=== PATIENT | male | born 1985 | race Caucasian/White ===

== ENCOUNTER 2017-01-09 18:57 | Emergency (ER) | payer OTHER ==
[2017-01-09 19:15] VITALS: BP 113/72; PULSE 77; RESP 16; TEMP 98.6; O2SAT 94
--- NOTE | 2017-01-09 20:04 | UCPHY ---
H & P Time Seen by Provider: 01/09/17 19:44 Patient Type: Established HPI/ROS: CHIEF COMPLAINT: Swelling on the left side of the face HISTORY OF PRESENT ILLNESS: 32-year-old male reports this morning when he woke and swelling on the left side of his face, over the angle of the jaw. Over the day the swelling seems to have diminished but the patient continues to have an area of a swollen lymph node on the left side of the neck. No other swollen lymph nodes are noted. No fever. No throat pain. No dental work. No rash. No complaints on the right side of the face. No fever, chills, chest pain, shortness of breath, palpitations, vomiting, diarrhea, urinary complaints, headache, lightheadedness. REVIEW OF SYSTEMS: Aside from elements discussed in the HPI, a comprehensive 10-point review of systems was reviewed and is negative. PAST MEDICAL HISTORY: Sinus infections. Received his immunizations as a child. SOCIAL HISTORY: Nonsmoker. VITAL SIGNS: see nurse's notes. GENERAL: Well-developed, well-nourished, in no acute distress. HEENT: Atraumatic. Slight asymmetry of the face is noted. Pupils equal round reactive to light, extraocular movements intact, no conjunctival injection. Tympanic members are clear bilaterally. No swelling noted over the left cheek. Moist mucous membranes. Small stone versus small amount of discharge present at the stensons duct intraorally. Neck: supple, FROM. Tender submandibular adenopathy on the left. LUNGS: Clear to auscultation bilaterally, no wheezes, rhonchi or rales. CARDIAC: Regular rate and rhythm, no rubs, murmurs or gallops. ABDOMEN: Soft, nontender, nondistended, bowel sounds normal. NEURO: Alert and oriented, grossly nonfocal. SKIN: Warm and dry, no rash. Smoking Status: Never smoked Constitutional: Initial Vital Signs Temperature (C) 37 C 01/09/17 19:11 Heart Rate 77 01/09/17 19:11 Respiratory Rate 16 01/09/17 19:11 Blood Pressure 113/72 01/09/17 19:11 O2 Sat (%) 94 01/09/17 19:11 O2 Delivery Mode Room Air Allergies/Adverse Reactions: No Known Allergies Allergy (Verified 01/09/17 19:15) Home Medications: Medication Instructions Recorded Claritin 04/26/14 Amoxicillin 500 mg PO TID 7 Days 01/09/17 Nasal [place] 01/09/17 Medical Decision Making ED Course/Re-evaluation: Examination demonstrates small punctate probable stone at Stensen's duct. Patient states that the symptoms of the cheek swelling has improved throughout the day. He does continue to have mild submandibular tenderness over the submandibular lymph node. Patient was given information regarding salivary stones. He also was given a prescription for amoxicillin to use if needed for ongoing discomfort in the submandibular lymph node. However, this may also represent a reactive inflammation. Patient was encouraged follow up with ENT. Please see the discharge instructions. Differential Diagnosis: Differential diagnoses for the patient's symptom complex was considered including but not limited to parotidis, mononucleosis, salivary duct stones, reactive lymphadenopathy, adenitis, submandibular gland stone. Departure - Departure Disposition: Home, Routine, Self-Care Clinical Impression: Adenitis, acute, Salivary duct stone Condition: Good Instructions: Sialoadenitis (ED), Adenitis (ED) Additional Instructions: I suspect that your symptoms may have been related to a stone in the salivary gland. If you have recurrent swelling of the face, try sucking on a lemon drop to increase the flow of saliva. If your lymph node in the neck continues to be swollen and tender, please start taking the amoxicillin. You may take ibuprofen as needed for pain. If you develop a fever, recurrent swelling in that is not improved with the above measures, swollen lymph nodes in other parts of the body, severe sore throat, or other concerns, please return to Urgent Care or follow up with your primary care physician. Referrals: NONE *PRIMARY CARE P,. [Primary Care Provider] - As per Instructions Ashly Joyce MD [Medical Doctor] - As per Instructions (Dr. Joyce is Ear Nose and Throat doctor. Please follow up as needed.) Prescriptions: Amoxicillin 500 mg PO TID 7 Days - PQRS PQRS Measurement: Not applicable
== END 2017-01-10 19:46 | disposition home or self-care (01) ==
LOC: CED 18:57
DX: R22.0 Localized swelling, mass and lump, head (principal); R22.1 Localized swelling, mass and lump, neck
CPT/HCPCS: 99214-PO; G0463-PO

== ENCOUNTER 2017-04-06 17:19 | Emergency (ER) | payer OTHER ==
[2017-04-06 17:24] VITALS: RESP 16
[2017-04-06] MEDS ORDERED: NS 1,000 ML IV ONE (17:54)
--- NOTE | 2017-04-06 18:00 | EDPHY ---
H & P Time Seen by Provider: 04/06/17 17:30 HPI/ROS: CHIEF COMPLAINT: Abdominal pain HISTORY OF PRESENT ILLNESS: 32-year-old male presents to the emergency department by private vehicle with abdominal pain. The pain began on Wednesday, 6 days ago and has been intermittent. He has had 4-5 episodes of watery diarrhea since then. No vomiting. No fevers or chills. No melena or blood in his stool. No recent travel. No known ill contacts. Denies chest pain or difficulty breathing. Denies any reported trauma. Denies urinary symptoms. Denies URI symptoms. REVIEW OF SYSTEMS: Constitutional: No fever, no chills. Eyes: No double or blurry vision. ENT: No sore throat. Respiratory: No cough, no shortness of breath. Cardiac: No chest pain. Gastrointestinal: abdominal pain. Diarrhea. No vomiting. Genitourinary: No dysuria. Musculoskeletal: No neck or back pain. Skin: No rashes. Neurological: No headache. Past Medical/Surgical History: Appendectomy Social History: , occupational therapy teacher at [employer] Smoking Status: Never smoked Physical Exam: General Appearance: Alert, no distress. 124/72, 98% on room air, afebrile. Eyes: Pupils equal and round. Extraocular motions are all intact. ENT: Mouth: Mucous membranes moist. Respiratory: No wheezing, rhonchi, or rales, lungs are clear to auscultation. Cardiovascular: Regular rate and rhythm. Gastrointestinal: Abdomen is soft. He has tenderness with palpation in the epigastric area as well as in the right upper quadrant. There is no rebound, guarding or masses noted. No CVA tenderness bilaterally. Neurological: Alert and oriented x 3, cranial nerves II through XII grossly intact Skin: Warm and dry, no rashes. Musculoskeletal: Nontender to palpate along the cervical, thoracic or lumbar spine. Neck is supple. Extremities: Full range of motion and no peripheral edema. Psychiatric: Patient is oriented X 3, there is no agitation. Constitutional: Initial Vital Signs Temperature (C) 36.2 C 04/06/17 17:23 Heart Rate 75 04/06/17 17:23 Respiratory Rate 16 04/06/17 17:23 Blood Pressure 124/72 H 04/06/17 17:23 O2 Sat (%) 98 05/16/17 17:23 O2 Delivery Mode Room Air Allergies/Adverse Reactions: No Known Allergies Allergy (Verified 01/09/17 19:15) Home Medications: Medication Instructions Recorded Claritin 04/26/14 Nasal [place] 01/09/17 Medical Decision Making - Diagnostics Imaging Results: Imaging Impressions Abdomen Ultrasound 04/06/17 18:22 Impression: Normal RUQ ultrasound. Findings and recommendations discussed with MARTA PONCE at 1926 hour, 2016. Final report concurs with initial preliminary interpretation. Abdomen CT 04/06/17 19:36 Impression: Normal. Findings and recommendations discussed with MARTA PONCE at 2034 hour, 2016. Final report concurs with initial preliminary interpretation. CT imaging of the abdomen and pelvis was normal. This was reported to me by Dr. Bryan. Imaging: Discussed imaging studies w/ call specialist Radiologist ED Course/Re-evaluation: 32-year-old male presents to the emergency department with abdominal pain. He also has diarrhea. The patient had a GI cocktail without relief. Laboratory studies including CBC and chemistries were normal. Gallbladder ultrasound was unremarkable. The patient continued to complain of epigastric and mid abdominal pain. I recommended CT imaging for further evaluation. Patient verbalized understanding and agreed. CT imaging of the abdomen pelvis was normal. The case was discussed with Dr. Benjamin Hathaway, secondary supervising physician , who did not directly evaluate the patient but agrees with treatment and plan. Patient was reassured. I did explain to the patient that it is still possible that he could have peptic ulcer disease and he should follow up with Gastroenterology. I encouraged him to use [id number] omeprazole. I also encouraged to use qdcp-bak-emplage Maalox or Mylanta. He should call to schedule follow-up appointment with planner intern. He was instructed to return if he develops vomiting, fever, melena, or if he felt worse in any way. I doubt this patient has infectious diarrhea. He did not provide stool specimen in the emergency department. Differential Diagnosis: Including but not limited to cholecystitis, cholelithiasis, pancreatitis, hepatitis bowel obstruction, colitis - Data Points Laboratory Results: Laboratory Results 04/06/17 18:05 04/06/17 18:05 04/06/17 04/06/17 18:05 18:05 WBC 5.23 10^3/uL 10^3/uL (3.80-9.50) RBC 5.00 10^6/uL 10^6/uL (4.40-6.38) Hgb 15.4 g/dL g/dL (13.7-17.5) Hct 45.3 % % (40.0-51.0) MCV 90.6 fL fL (81.5-99.8) MCH 30.8 pg pg (27.9-34.1) MCHC 34.0 g/dL g/dL (32.4-36.7) RDW 13.0 % % (11.5-15.2) Plt Count 260 10^3/uL 10^3/uL (150-400) MPV 8.9 fL fL (8.7-11.7) Neut % (Auto) 31.9 % L % (39.3-74.2) Lymph % (Auto) 53.9 % H % (15.0-45.0) [place] % (Auto) 9.9 % % (4.5-13.0) Eos % (Auto) 3.3 % % (0.6-7.6) Baso % (Auto) 1.0 % % (0.3-1.7) Nucleat RBC Rel Count 0.0 % % (0.0-0.2) Absolute Neuts (auto) 1.67 10^3/uL L 10^3/uL (1.70-6.50) Absolute Lymphs (auto) 2.82 10^3/uL 10^3/uL (1.00-3.00) Absolute Monos (auto) 0.52 10^3/uL 10^3/uL (0.30-0.80) Absolute Eos (auto) 0.17 10^3/uL 10^3/uL (0.03-0.40) Absolute Basos (auto) 0.05 10^3/uL 10^3/uL (0.02-0.10) Absolute Nucleated RBC 0.00 10^3/uL 10^3/uL (0-0.01) Immature Gran % 0.0 % % (0.0-1.1) Immature Gran # 0.00 10^3/uL 10^3/uL (0.00-0.10) Sodium 139 mEq/L mEq/L (134-144) Potassium 4.3 mEq/L mEq/L (3.5-5.2) Chloride 102 mEq/L mEq/L (97-110) Carbon Dioxide 28 mEq/l mEq/l (22-31) Anion Gap 9 mEq/L mEq/L (8-16) BUN 15 mg/dL mg/dL (7-23) Creatinine 1.0 mg/dL mg/dL (0.7-1.3) Estimated GFR > 60 Glucose 91 mg/dL mg/dL (70-100) Calcium 9.9 mg/dL mg/dL (8.5-10.4) Total Bilirubin 0.4 mg/dL mg/dL (0.1-1.4) Conjugated Bilirubin 0.2 mg/dL mg/dL (0.0-0.5) Unconjugated Bilirubin 0.2 mg/dL mg/dL (0.0-1.1) AST 31 IU/L IU/L (17-59) ALT 36 IU/L IU/L (21-72) Alkaline Phosphatase 62 IU/L IU/L (38-126) Total Protein 7.6 g/dL g/dL (6.3-8.2) Albumin 4.2 g/dL g/dL (3.5-5.0) Lipase 41.0 IU/L IU/L (23-300) Medications Given: Discontinued Medications Al Hydroxide/Mg Hydroxide (Maalox Susp) 30 ml PO ONCE ONE Stop: 04/06/17 18:45 Last Admin: 04/06/17 19:24 Dose: 30 ml Hyoscyamine Sulfate (Levsin, Hyomax-Sl) 0.25 mg PO ONCE ONE Stop: 04/06/17 18:45 Last Admin: 04/06/17 19:23 Dose: 0.25 mg Sodium Chloride (Ns) 1,000 mls @ 0 mls/hr IV ONCE ONE PRN Reason: Wide Open Stop: 04/06/17 17:55 Last Admin: 04/06/17 18:20 Dose: 1,000 mls Lidocaine (Lidocaine 2% Viscous) 15 ml PO ONCE ONE Stop: 04/06/17 18:45 Last Admin: 04/06/17 19:23 Dose: 15 ml Departure - Departure Disposition: Home, Routine, Self-Care Clinical Impression: Abdominal pain Qualifiers: Abdominal location: epigastric Qualified Code(s): R10.13 - Epigastric pain Condition: Good Instructions: Abdominal Pain (ED) Additional Instructions: Abdominal Pain: Return to the Emergency Department immediately for increasing pain, fever, vomiting, or if not completely better in 8-12 hours. Use [id number] omeprazole in the morning and at night for 2 weeks and then once daily thereafter. You may also try Maalox or Mylanta. Call to schedule follow-up appointment with Gastroenterology. Referrals: Golden Melissa MD [Medical Doctor] - As per Instructions (Welfare Project Manager on- call)
[2017-04-06 18:17] LABS: ADD DIFF? NO; ADD MORPH? NO; ADD SCAN? NO; ATYPICAL LYMPHOCYTE FLAG 30 (0-99); FRAGMENT RBC FLAG 0 (0-99); HEMATOCRIT 45.3 % (40.0-51.0); HEMOGLOBIN 15.4 g/dL (13.7-17.5); LEFT SHIFT FLG 0 (0-99); LIPEMIA HEMOLYSIS FLAG 90 (0-99); MEAN CELL HEMOGLOBIN 30.8 pg (27.9-34.1); MEAN CELL VOLUME 90.6 fL (81.5-99.8); MEAN PLATELET VOLUME 8.9 fL (8.7-11.7); PLATELET CLUMPS FLAG 0 (0-99); PLATELET COUNT 260 10^3/uL (150-400)
[2017-04-06 18:35] LABS: ALANINE AMINOTRANSFERASE 36 IU/L (21-72); ALBUMIN 4.2 g/dL (3.5-5.0); ALKALINE PHOSPHATASE 62 IU/L (38-126); ANION GAP 9 mEq/L (8-16); ASPARTATE AMINOTRANSFERASE 31 IU/L (17-59); BILIRUBIN,TOTAL 0.4 mg/dL (0.1-1.4); BILIRUBIN-CONJUGATED 0.2 mg/dL (0.0-0.5); BILIRUBIN-UNCONJUGATED 0.2 mg/dL (0.0-1.1); CALCIUM 9.9 mg/dL (8.5-10.4); CARBON DIOXIDE 28 mEq/l (22-31); CHLORIDE 102 mEq/L (97-110); GLOMERULAR FILTRATION RATE > 60; GLUCOSE 91 mg/dL (70-100); POTASSIUM 4.3 mEq/L (3.5-5.2); SODIUM 139 mEq/L (134-144); TOTAL PROTEIN 7.6 g/dL (6.3-8.2)
[2017-04-06] MEDS ORDERED: HYOSCYAMINE SULFATE 0.125 MG TAB PO ONE (18:44)
[2017-04-06] MEDS ORDERED: LIDOCAINE 2% VISCOUS 15 ML UDCUP PO ONE (18:44)
[2017-04-06] MEDS ORDERED: MAG HYDROX/AL HYDROX/SIMETH 30 ML UDCUP PO ONE (18:44)
[2017-04-06 20:40] VITALS: O2SAT 96
[2017-04-06 21:37] VITALS: BP 114/85; PULSE 66; TEMP 97.7
== END 2017-04-06 21:35 | disposition home or self-care (01) ==
DX: R10.13 Epigastric pain (principal)

== ENCOUNTER 2017-04-07 20:26 | Emergency (ER) | payer OTHER ==
[2017-04-07 20:36] VITALS: RESP 16; TEMP 97.5
[2017-04-07] MEDS ORDERED: ONDANSETRON 4 MG/2 ML VIAL IVP ONE (21:15)
[2017-04-07] MEDS ORDERED: NS 1,000 ML IV ONE (21:15)
[2017-04-07] MEDS ORDERED: KETOROLAC 30 MG/1 ML SDV IVP ONE (21:15)
--- NOTE | 2017-04-07 21:19 | EDPHY ---
H & P Time Seen by Provider: 04/07/17 20:51 HPI/ROS: CHIEF COMPLAINT: Abdominal pain HISTORY OF PRESENT ILLNESS: Patient is a 32-year-old male with ongoing abdominal pain. He was seen in the emergency department yesterday for the same symptoms. His symptoms started 7 days ago and has been intermittent since that time. He has also had intermittent watery diarrhea. He has had nausea but no vomiting. He returns today with 2 days of constant abdominal pain. He states this is the 1st time he has had the pain 2 days in a row. He denies fevers or chills. He describes his pain as central in the upper abdomen. It does not radiate to his back or chest. He denies dysuria or frequency. No travel or antibiotic use. REVIEW OF SYSTEMS: My complete review of systems is negative except as mentioned in the HPI. Past Medical/Surgical History: Negative Surgical history: Appendectomy Social history: . The patient is intervention teacher case in middle school. He does not smoke. Smoking Status: Never smoked Physical Exam: Vitals noted GENERAL: Mild acute distress, alert. HEENT: Eyes normal to inspection, normal pharynx, no signs of dehydration. NECK: No thyromegaly, no lymphadenopathy, supple. RESPIRATORY: Clear to auscultation bilaterally, no rales, rhonchi or wheezing. CVS: Regular rate and rhythm, no rubs, murmurs, or gallops. ABDOMEN: Soft, nontender, nondistended, no organomegaly. Benign on exam BACK: Normal to inspection, no CVA tenderness. SKIN: Normal color, no rash, warm, dry. No pallor. EXTREMITIES: No pedal edema, no calf tenderness, no Homans sign or cords, no joint swelling. NEURO/PSYCH: Alert and oriented x3, normal mood and affect, normal motor sensory exam. Constitutional: Initial Vital Signs Temperature (C) 36.4 C 04/07/17 20:30 Heart Rate 61 04/07/17 20:30 Respiratory Rate 16 04/07/17 20:30 Blood Pressure 154/87 H 04/07/17 20:30 O2 Sat (%) 96 04/07/17 20:30 O2 Delivery Mode Room Air Allergies/Adverse Reactions: No Known Allergies Allergy (Verified 01/09/17 19:15) Home Medications: Medication Instructions Recorded Claritin 06/05/14 Nasal [place] 01/09/17 oxyCODONE/APAP 5/325 [Percocet 1 - 2 tab PO Q4PRN PRN #11 tab 04/07/17 5/325 (*)] Medical Decision Making ED Course/Re-evaluation: In the emergency department I discussed possible etiologies with the patient. I answered his questions. I reviewed the patient's previous admission and imaging results. Both the patient's CT and ultrasound were normal as read by Dr. Evelin Bryan. Laboratory studies were unremarkable. An IV was placed. Patient given normal saline 1 L IV for hydration. Patient was given Toradol 30 mg IV and morphine 6 mg IV for pain control. He is given Zofran 4 mg IV for nausea. On recheck the patient states he felt much better. His abdominal pain had resolved. On repeat exam is abdomen was soft, nontender nondistended. I reviewed the patient's laboratory studies. Of note his white count and CBC were normal. His chemistry panel and LFTs were normal. Lipase normal. UA showed ketones with no other abnormalities. I discussed the results with the patient. Repeat exam he stated his pain had resolved. Abdomen was soft, nontender nondistended. I offered the patient admission for further observation. The patient states he has an appointment with quarry extraction worker tomorrow. He would prefer to be discharged home. Was given a take-home pack of Percocet and given a prescription of 7 tablets. He was instructed to return to the emergency department if his symptoms worsen. Differential Diagnosis: My differential includes but is not limited to peptic ulcer disease, perforation , hiatal hernia, esophagitis, small-bowel obstruction, cholecystitis, cholangitis, electrolyte abnormality, sugar abnormality - Data Points Laboratory Results: Laboratory Results 04/07/17 21:50 04/07/17 21:50 04/07/17 04/07/17 04/07/17 22:00 21:50 21:50 WBC 5.43 10^3/uL 10^3/uL (3.80-9.50) RBC 4.85 10^6/uL 10^6/uL (4.40-6.38) Hgb 14.8 g/dL g/dL (13.7-17.5) Hct 43.3 % % (40.0-51.0) MCV 89.3 fL fL (81.5-99.8) MCH 30.5 pg pg (27.9-34.1) MCHC 34.2 g/dL g/dL (32.4-36.7) RDW 12.7 % % (11.5-15.2) Plt Count 282 10^3/uL 10^3/uL (150-400) MPV 8.9 fL fL (8.7-11.7) Neut % (Auto) 42.5 % % (39.3-74.2) Lymph % (Auto) 46.4 % H % (15.0-45.0) [place] % (Auto) 7.9 % % (4.5-13.0) Eos % (Auto) 2.4 % % (0.6-7.6) Baso % (Auto) 0.6 % % (0.3-1.7) Nucleat RBC Rel Count 0.0 % % (0.0-0.2) Absolute Neuts (auto) 2.31 10^3/uL 10^3/uL (1.70-6.50) Absolute Lymphs (auto) 2.52 10^3/uL 10^3/uL (1.00-3.00) Absolute Monos (auto) 0.43 10^3/uL 10^3/uL (0.30-0.80) Absolute Eos (auto) 0.13 10^3/uL 10^3/uL (0.03-0.40) Absolute Basos (auto) 0.03 10^3/uL 10^3/uL (0.02-0.10) Absolute Nucleated RBC 0.00 10^3/uL 10^3/uL (0-0.01) Immature Gran % 0.2 % % (0.0-1.1) Immature Gran # 0.01 10^3/uL 10^3/uL (0.00-0.10) Sodium 136 mEq/L mEq/L (134-144) Potassium 4.4 mEq/L mEq/L (3.5-5.2) Chloride 101 mEq/L mEq/L (97-110) Carbon Dioxide 25 mEq/l mEq/l (22-31) Anion Gap 10 mEq/L mEq/L (8-16) BUN 9 mg/dL mg/dL (7-23) Creatinine 1.0 mg/dL mg/dL (0.7-1.3) Estimated GFR > 60 Glucose 100 mg/dL mg/dL (70-100) Calcium 9.5 mg/dL mg/dL (8.5-10.4) Total Bilirubin 0.7 mg/dL D mg/dL (0.1-1.4) Conjugated Bilirubin 0.3 mg/dL mg/dL (0.0-0.5) Unconjugated Bilirubin 0.4 mg/dL mg/dL (0.0-1.1) AST 25 IU/L IU/L (17-59) ALT 39 IU/L IU/L (21-72) Alkaline Phosphatase 66 IU/L IU/L (38-126) Total Protein 7.1 g/dL g/dL (6.3-8.2) Albumin 4.3 g/dL g/dL (3.5-5.0) Lipase 38.0 IU/L IU/L (23-300) Urine Color YELLOW Urine Appearance HAZY Urine pH 7.0 (5.0-7.5) Ur Specific [place] 1.021 (1.002-1.030) Urine Protein NEGATIVE (NEGATIVE) Urine Ketones TRACE H (NEGATIVE) Urine Blood NEGATIVE (NEGATIVE) Urine Nitrate NEGATIVE (NEGATIVE) Urine Bilirubin NEGATIVE (NEGATIVE) Urine Urobilinogen NEGATIVE EU EU (0.2-1.0) Ur Leukocyte Esterase NEGATIVE (NEGATIVE) Urine Glucose NEGATIVE (NEGATIVE) Medications Given: Discontinued Medications Famotidine (Pepcid) 20 mg IVP EDNOW ONE Stop: 04/07/17 21:42 Last Admin: 04/07/17 22:06 Dose: 20 mg Sodium Chloride (Ns) 1,000 mls @ 0 mls/hr IV ONCE ONE PRN Reason: Wide Open Stop: 04/07/17 21:16 Last Admin: 04/07/17 21:50 Dose: 1,000 mls Ketorolac Tromethamine (Toradol) 30 mg IVP EDNOW ONE Stop: 04/07/17 21:16 Last Admin: 04/07/17 21:58 Dose: 30 mg Morphine Sulfate (Morphine) 6 mg IVP EDNOW ONE Stop: 04/07/17 21:16 Last Admin: 04/07/17 21:58 Dose: 6 mg Ondansetron HCl (Zofran) 4 mg IVP EDNOW ONE Stop: 04/07/17 21:16 Last Admin: 04/07/17 21:59 Dose: 4 mg Departure - Departure Disposition: Home, Routine, Self-Care Clinical Impression: Abdominal pain Qualifiers: Abdominal location: generalized Qualified Code(s): R10.84 - Generalized abdominal pain Condition: Good Instructions: Abdominal Pain (ED) Additional Instructions: Keep your appointment with the quarry extraction worker tomorrow. Return to the emergency department sooner if you have increasing pain, vomiting, fever, or any other concerns. Referrals: Golden Melissa MD [Medical Doctor] - 1 day without fail Prescriptions: oxyCODONE/APAP 5/325 [Percocet 5/325 (*)] 1 - 2 tab PO Q4PRN PRN #11 tab PRN Reason: For Moderate To Severe Pain
[2017-04-07] MEDS ORDERED: FAMOTIDINE 20 MG/2 ML SDV IVP ONE (21:41)
[2017-04-07 22:09] LABS: % IMMATURE GRANULYOCYTES 0.2 % (0.0-1.1); ABSOLUTE IMMATURE GRANULOCYTES 0.01 10^3/uL (0.00-0.10); ADD DIFF? NO; ADD MORPH? NO; ADD SCAN? NO; ATYPICAL LYMPHOCYTE FLAG 10 (0-99); FRAGMENT RBC FLAG 10 (0-99); HEMATOCRIT 43.3 % (40.0-51.0); HEMOGLOBIN 14.8 g/dL (13.7-17.5); LEFT SHIFT FLG 0 (0-99); LIPEMIA HEMOLYSIS FLAG 90 (0-99); MEAN CELL HEMOGLOBIN 30.5 pg (27.9-34.1); MEAN CELL HEMOGLOBIN CONCENTR. 34.2 g/dL (32.4-36.7); MEAN CELL VOLUME 89.3 fL (81.5-99.8); MEAN PLATELET VOLUME 8.9 fL (8.7-11.7); PLATELET CLUMPS FLAG 0 (0-99); PLATELET COUNT 282 10^3/uL (150-400); RED BLOOD CELL COUNT 4.85 10^6/uL (4.40-6.38); RED CELL DISTRIBUTION WIDTH 12.7 % (11.5-15.2)
[2017-04-07 22:14] LABS: COLOR YELLOW; LEUKOCYTE ESTERASE,URINE NEGATIVE (NEGATIVE); NITRITE,URINE NEGATIVE (NEGATIVE)
[2017-04-07 22:22] LABS: ALANINE AMINOTRANSFERASE 39 IU/L (21-72); ALBUMIN 4.3 g/dL (3.5-5.0); ALKALINE PHOSPHATASE 66 IU/L (38-126); ANION GAP 10 mEq/L (8-16); ASPARTATE AMINOTRANSFERASE 25 IU/L (17-59); BILIRUBIN,TOTAL 0.7 mg/dL (0.1-1.4); BILIRUBIN-CONJUGATED 0.3 mg/dL (0.0-0.5); BILIRUBIN-UNCONJUGATED 0.4 mg/dL (0.0-1.1); CALCIUM 9.5 mg/dL (8.5-10.4); CARBON DIOXIDE 25 mEq/l (22-31); CHLORIDE 101 mEq/L (97-110); GLOMERULAR FILTRATION RATE > 60; GLUCOSE 100 mg/dL (70-100); POTASSIUM 4.4 mEq/L (3.5-5.2); SODIUM 136 mEq/L (134-144); TOTAL PROTEIN 7.1 g/dL (6.3-8.2)
[2017-04-07] MEDS ORDERED: OXYCODONE/APAP 5/325MG PREPACK#4 BTL TAKEHOME ONE (22:53)
[2017-04-07 23:05] VITALS: BP 131/93; PULSE 62; O2SAT 95
== END 2017-04-07 23:04 | disposition home or self-care (01) ==
DX: R10.84 Generalized abdominal pain (principal)
CPT/HCPCS: J1885; J2405

== ENCOUNTER 2017-04-11 22:17 | Emergency (ER) | payer OTHER ==
[2017-04-11 22:34] VITALS: TEMP 97.3
[2017-04-11] MEDS ORDERED: HYOSCYAMINE SULFATE 0.125 MG TAB PO ONE (22:50)
[2017-04-11] MEDS ORDERED: LIDOCAINE 2% VISCOUS 15 ML UDCUP PO ONE (22:50)
[2017-04-11] MEDS ORDERED: MAG HYDROX/AL HYDROX/SIMETH 30 ML UDCUP PO ONE (22:50)
[2017-04-11] MEDS ORDERED: LORazepam 2 MG/ML INJ IVP ONE (23:00)
[2017-04-11] MEDS ORDERED: KETOROLAC 30 MG/1 ML SDV IVP ONE (23:00)
--- NOTE | 2017-04-11 23:04 | EDPHY ---
H & P Stated Complaint: c/o abd pain seen here x2 and pcp x1 for same not better Time Seen by Provider: 04/11/17 22:42 HPI/ROS: CHIEF COMPLAINT: Continued epigastric pain HISTORY OF PRESENT ILLNESS: 32-year-old male seen twice previously in the emergency department within the past approximately 1 week for similar complaints. He has had upper abdominal ultrasonography and CT imaging both of which revealed no definitive etiology for his symptoms. He was seen by [facility] 3 days ago, prescribed omeprazole and recommended 30 day follow-up. In the past 2 days his symptoms have returned. No nausea. No vomiting. No radiation of pain. The pain is isolated to the epigastrium describes a cramping sensation. Bowel movements have been normal with no melena or hematochezia. No radiation of back or chest. No urinary abnormality such as dysuria frequency. No travel or antibiotic use. Denies genitalia or testicle pain PRIMARY CARE PROVIDER: [facility] REVIEW OF SYSTEMS: A ten point review of systems was performed and is negative with the exception of the items mentioned in the HPI PAST MEDICAL & SURGICAL HISTORY: appendectomy history SOCIAL HISTORY: . choral teacher in middle school. Nonsmoker PHYSICAL EXAM (Prior to examination, patient consented to physical exam, hands were washed and my usual and customary physical exam procedures followed) 1) GENERAL: Well-developed, well-nourished, alert and oriented. Appears uncomfortable, guarding his epigastrium 2) HEAD: Normocephalic, atraumatic 3) HEENT: Pupils equal, round, reactive to light bilaterally. Sclera anicteric. 4) NECK: Full range of motion, no meningeal signs. 5) LUNGS: Clear auscultation bilaterally, no wheezes, no rhonchi, no retractions. 6) HEART: Regular rate and rhythm, no murmur, no heave, no gallop. 7) ABDOMEN: guarding epigastrium, no rebound, no focal tenderness, negative McBurney's, negative Gann's, negative Rovsing's, negative peritoneal sign, Abdominal plain including palpation of the epigastrium. 8) MUSCULOSKELETAL: Moving all extremities, no focal areas of tenderness, no obvious trauma. No peripheral edema or discoloration. 9) BACK: No CVA tenderness, no midline vertebral tenderness, no fluctuance, no step-off, no obvious trauma, no visual or palpable abnormality. 10) SKIN: No rash, no petechiae. 11) Psychiatric: Patient is oriented X 3. DIFFERENTIAL DIAGNOSIS: In no particular order, including but not limited to biliary colic, cholecystitis, peptic ulcer disease, pancreatitis, and gastroenteritis. This is a partial list of diagnoses considered. These considerations are based on history, physical exam, past history and reassessment. - Personal History Current Tetanus Diphtheria and Acellular Pertussis (TDAP): Yes Tetanus Vaccine Date: within 10 years - Medical/Surgical History Hx Asthma: No Hx Chronic Respiratory Disease: No Hx Diabetes: No Hx Cardiac Disease: No Hx Renal Disease: No Hx Cirrhosis: No Hx Alcoholism: No Hx HIV/AIDS: No Hx Splenectomy or Spleen Trauma: No Other PMH: Appendectomy - Social History Smoking Status: Never smoked Constitutional: Initial Vital Signs Temperature (C) 36.3 C 04/11/17 22:31 Heart Rate 69 04/11/17 22:31 Respiratory Rate 20 04/11/17 22:31 Blood Pressure 133/88 H 04/11/17 22:31 O2 Sat (%) 99 04/11/17 22:31 O2 Delivery Mode Room Air Allergies/Adverse Reactions: No Known Allergies Allergy (Verified 01/09/17 19:15) Home Medications: Medication Instructions Recorded Claritin 04/26/14 Nasal [place] 01/09/17 oxyCODONE/APAP 5/325 [Percocet 1 - 2 tab PO Q4PRN PRN #11 tab 04/07/17 5/325 (*)] Medical Decision Making ED Course/Re-evaluation: 11:01 p.m.: Old medical records reviewed by myself including both emergency department visits within the approximate last week. Specific etiology of the patient's continued epigastric discomfort is not completely clear at this time. Based on his emergency department visits I think that acute surgical abdominal pathology, acute appendicitis, acute cholecystitis, is less than likely at this time especially as I am unable to elicit any abdominal pain on exam. I have recommended non opioid interventions. 12:30 a.m.: re-evaluation, still complaining of pain unrelieved. Will administer IV ketamine at 0.2 milligrams/kilogram 1257 am: Patient re-evaluated, He is sleeping, appears comfortable, states that his pain is relieved after IV ketamine,he would like to be discharged. Doubt acute surgical abdominal pathology. Usual and customary abdominal precautions and instructions provided. Discussed case with secondary supervising Dr. Hathaway. 1:20 a.m.: Patient is requesting further analgesia. He is somnolent at this time. Informed him that I do not think it is safe to administer further analgesia. He requests whether he can be admitted overnight. At this time I do not identify definitive indication for hospitalization. 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 I empathized with his ongoing symptoms - Data Points Laboratory Results: Laboratory Results 04/11/17 23:10 04/11/17 23:10 04/11/17 04/11/17 23:10 23:10 WBC 6.29 10^3/uL 10^3/uL (3.80-9.50) RBC 5.15 10^6/uL 10^6/uL (4.40-6.38) Hgb 15.5 g/dL g/dL (13.7-17.5) Hct 45.2 % % (40.0-51.0) MCV 87.8 fL fL (81.5-99.8) MCH 30.1 pg pg (27.9-34.1) MCHC 34.3 g/dL g/dL (32.4-36.7) RDW 12.5 % % (11.5-15.2) Plt Count 249 10^3/uL 10^3/uL (150-400) MPV 8.6 fL L fL (8.7-11.7) Neut % (Auto) 41.3 % % (39.3-74.2) Lymph % (Auto) 47.2 % H % (15.0-45.0) [place] % (Auto) 8.1 % % (4.5-13.0) Eos % (Auto) 2.7 % % (0.6-7.6) Baso % (Auto) 0.5 % % (0.3-1.7) Nucleat RBC Rel Count 0.0 % % (0.0-0.2) Absolute Neuts (auto) 2.60 10^3/uL 10^3/uL (1.70-6.50) Absolute Lymphs (auto) 2.97 10^3/uL 10^3/uL (1.00-3.00) Absolute Monos (auto) 0.51 10^3/uL 10^3/uL (0.30-0.80) Absolute Eos (auto) 0.17 10^3/uL 10^3/uL (0.03-0.40) Absolute Basos (auto) 0.03 10^3/uL 10^3/uL (0.02-0.10) Absolute Nucleated RBC 0.00 10^3/uL 10^3/uL (0-0.01) Immature Gran % 0.2 % % (0.0-1.1) Immature Gran # 0.01 10^3/uL 10^3/uL (0.00-0.10) Sodium 138 mEq/L mEq/L (134-144) Potassium 4.2 mEq/L mEq/L (3.5-5.2) Chloride 101 mEq/L mEq/L (97-110) Carbon Dioxide 25 mEq/l mEq/l (22-31) Anion Gap 12 mEq/L mEq/L (8-16) BUN 14 mg/dL mg/dL (7-23) Creatinine 1.1 mg/dL mg/dL (0.7-1.3) Estimated GFR > 60 Glucose 106 mg/dL H mg/dL (70-100) Calcium 9.6 mg/dL mg/dL (8.5-10.4) Total Bilirubin 0.7 mg/dL mg/dL (0.1-1.4) Conjugated Bilirubin 0.3 mg/dL mg/dL (0.0-0.5) Unconjugated Bilirubin 0.4 mg/dL mg/dL (0.0-1.1) AST 23 IU/L IU/L (17-59) ALT 37 IU/L IU/L (21-72) Alkaline Phosphatase 67 IU/L IU/L (38-126) Total Protein 7.8 g/dL g/dL (6.3-8.2) Albumin 4.8 g/dL g/dL (3.5-5.0) Lipase 53.0 IU/L IU/L (23-300) Departure - Departure Disposition: Home, Routine, Self-Care Clinical Impression: Abdominal pain Qualifiers: Abdominal location: epigastric Qualified Code(s): R10.13 - Epigastric pain Condition: Good Instructions: Epigastric Pain (ED) Additional Instructions: return to the ER if you develop new or worsening abdominal pain, fever, chills or any other symptoms that concern Referrals: Contact, your continuous mining machine company miner tomorrow [Other] - As per Instructions
[2017-04-11 23:22] LABS: % IMMATURE GRANULYOCYTES 0.2 % (0.0-1.1); ABSOLUTE IMMATURE GRANULOCYTES 0.01 10^3/uL (0.00-0.10); ADD DIFF? NO; ADD MORPH? NO; ADD SCAN? NO; ATYPICAL LYMPHOCYTE FLAG 20 (0-99); FRAGMENT RBC FLAG 0 (0-99); HEMATOCRIT 45.2 % (40.0-51.0); HEMOGLOBIN 15.5 g/dL (13.7-17.5); LEFT SHIFT FLG 0 (0-99); LIPEMIA HEMOLYSIS FLAG 90 (0-99); MEAN CELL HEMOGLOBIN 30.1 pg (27.9-34.1); MEAN CELL HEMOGLOBIN CONCENTR. 34.3 g/dL (32.4-36.7); MEAN CELL VOLUME 87.8 fL (81.5-99.8); MEAN PLATELET VOLUME 8.6 fL (8.7-11.7); PLATELET CLUMPS FLAG 0 (0-99); PLATELET COUNT 249 10^3/uL (150-400); RED BLOOD CELL COUNT 5.15 10^6/uL (4.40-6.38); RED CELL DISTRIBUTION WIDTH 12.5 % (11.5-15.2)
[2017-04-11 23:34] LABS: ALANINE AMINOTRANSFERASE 37 IU/L (21-72); ALBUMIN 4.8 g/dL (3.5-5.0); ALKALINE PHOSPHATASE 67 IU/L (38-126); ANION GAP 12 mEq/L (8-16); ASPARTATE AMINOTRANSFERASE 23 IU/L (17-59); BILIRUBIN,TOTAL 0.7 mg/dL (0.1-1.4); BILIRUBIN-CONJUGATED 0.3 mg/dL (0.0-0.5); BILIRUBIN-UNCONJUGATED 0.4 mg/dL (0.0-1.1); CALCIUM 9.6 mg/dL (8.5-10.4); CARBON DIOXIDE 25 mEq/l (22-31); CHLORIDE 101 mEq/L (97-110); CREATININE 1.1 mg/dL (0.7-1.3); GLOMERULAR FILTRATION RATE > 60; GLUCOSE 106 mg/dL (70-100); POTASSIUM 4.2 mEq/L (3.5-5.2); SODIUM 138 mEq/L (134-144); TOTAL PROTEIN 7.8 g/dL (6.3-8.2)
[2017-04-12] MEDS ORDERED: KETAMINE 100 MG/10 ML SYR IVP ONE (00:27)
[2017-04-12 00:36] VITALS: BP 128/62; PULSE 61; RESP 16; O2SAT 94
== END 2017-04-12 01:15 | disposition home or self-care (01) ==
DX: R10.13 Epigastric pain (principal); Z90.49 Acquired absence of other specified parts of digestive tract
CPT/HCPCS: 96374; J1885; J2060

== ENCOUNTER 2018-01-26 21:18 | Emergency (ER) | payer OTHER ==
--- NOTE | 2018-01-26 21:32 | CPEKG ---
Heart Rate: 68 RR Interval: 882 P-R Interval: 168 QRSD Interval: 76 QT Interval: 380 QTC Interval: 405 P [place]: 50 QRS [place]: 25 T Wave [place]: 58 EKG Severity - NORMAL ECG - EKG Impression: SINUS RHYTHM Electronically Signed By: Clifford Rubio 26-Jan-2018 22:07:03
--- NOTE | 2018-01-26 21:58 | EDPHY ---
H & P Smoking Status: Never smoked Time Seen by Provider: 01/26/18 21:37 HPI/ROS: CHIEF COMPLAINT: Chest pain HISTORY OF PRESENT ILLNESS: 33-year-old male presents to the emergency department complaining of chest pressure and and tightness that he noticed when he woke up this morning. He states that it has been present all day. He does report that he has been under great stress lately. He recently traveled to [place] by plane to do some training with [employer]. He did not have any symptoms at that time. He denies calf pain or swelling. Specifically denies pleuritic chest pain. He denies a headache. Denies radiation of pain from his chest. He has not taken any medication to see if this might resolved. He has a history of high cholesterol that is being followed at the [facility]. He has never been on medication for this. No URI symptoms. No nausea or vomiting. No headache or neck pain. No other reported trauma. REVIEW OF SYSTEMS: Constitutional: No fever, no chills. Eyes: No double or blurry vision. ENT: No sore throat. Respiratory: No cough, no shortness of breath. Cardiac: chest pain. Gastrointestinal: No abdominal pain, vomiting or diarrhea. Genitourinary: No dysuria. Musculoskeletal: No neck or back pain. Skin: No rashes. Neurological: No headache. (Stacey Gillis) Past Medical/Surgical History: High cholesterol (Stacey Gillis) Social History: Teacher at [employer], (Stacey Gillis) Physical Exam: General Appearance: Alert, no distress. Blood pressure 107/74, 95% on room air. Heart rate 70 Eyes: Pupils equal and round. Extraocular motions are all intact. ENT: Mouth: Mucous membranes moist. Respiratory: No wheezing, rhonchi, or rales, lungs are clear to auscultation. Unable to reproduce pain with palpation to the anterior aspect of his chest. No palpable crepitus or other bony abnormality. Cardiovascular: Regular rate and rhythm. Gastrointestinal: Abdomen is soft and nontender, no masses, no rebound or guarding, bowel sounds normal. Neurological: Alert and oriented x 3, cranial nerves II through XII grossly intact Skin: Warm and dry, no rashes. Musculoskeletal: Nontender to palpate along the cervical, thoracic or lumbar spine. Neck is supple. Extremities: Full range of motion and no peripheral edema. Psychiatric: Patient is oriented X 3, there is no agitation. (Stacey Gillis) Constitutional: Initial Vital Signs Temperature (C) 36.3 C 01/26/18 21:21 Heart Rate 74 01/26/18 21:21 Respiratory Rate 18 01/26/18 21:21 Blood Pressure 139/76 H 01/26/18 21:21 O2 Sat (%) 98 01/26/18 21:21 O2 Delivery Mode Room Air Allergies/Adverse Reactions: No Known Allergies Allergy (Verified 01/09/17 19:15) Home Medications: Medication Instructions Recorded Claritin 04/26/14 Nasal [place] 01/09/17 oxyCODONE/APAP 5/325 [Percocet 1 - 2 tab PO Q4PRN PRN #11 tab 04/07/17 5/325 (*)] Medical Decision Making - Diagnostics Imaging: I viewed and interpreted images myself - Diagnostics EKG Interpretation: EKG: Complete interpretation has been separately recorded in the [employer] archive. Summary impression: Sinus rhythm, rate 68 (Clifford Rubio) Imaging Results: Imaging Impressions Chest X-Ray 01/26/18 21:51 Impression: There is no acute intrathoracic abnormality. ED Course/Re-evaluation: 33-year-old male presents to the emergency department by private vehicle with chest pain and tightness. EKG reveals normal sinus rhythm. Chest x-ray is unremarkable. Laboratory studies are drawn and are pending. Laboratory studies including troponin and D-dimer are negative. I doubt this patient has pulmonary embolism. Perc rule is negative. Chest x-rays unremarkable. Patient will be discharged and encouraged to have follow-up with environmental compliance manager. (Stacey Gillis) Differential Diagnosis: Chest pain including but not limited to myocardial ischemia, pulmonary embolus, chest wall pain, pleural inflammation and pulmonary infectious causes. (Stacey Gillis) Other Provider: Independent physician evaluation I evaluated and participated in the management of the patient. I also evaluated the patient independently. My co-signature indicates that I have reviewed this chart and I agree with the findings and plan of care as documented. My personal H&P findings include: The patient presents the ED with a 1 day history of central chest pain. The patient reports no prior history of exertional chest pain. He does have hyperlipidemia but no other risk factors for coronary artery disease. The patient has no history of asymmetric calf pain or swelling, recent surgery or prolonged immobilization. There is no history of thromboembolic disease. The patient does endorse symptoms of increasing stress and anxiety. He does have a history of gastroesophageal reflux disease. The patient states his pain is not reproducible but is currently quite mild he rates it as a 1 to 2/10. Physical exam: General Appearance: Alert, no distress Eyes: Pupils equal and round no pallor or injection ENT, Mouth: Mucous membranes moist Respiratory: There are no retractions, lungs are clear to auscultation Cardiovascular: Regular rate and rhythm Gastrointestinal: Abdomen is soft and nontender, no masses, bowel sounds normal Neurological: Moves all 4 extremities with 5/5 strength Skin: Warm and dry, no rashes Musculoskeletal: Neck is supple nontender Extremities: symmetrical, full range of motion ED Course: The patient presents to the ED with a 1 day history of atypical chest pain. His EKG is nonischemic. His chest x-ray demonstrates no evidence of obvious disease. Plan will be for laboratory testing. If his troponin laboratory markers are unremarkable he will be discharged home with instructions to follow up with Cardiology for further evaluation. He is discharged home with customary chest pain aftercare instructions. (Clifford Rubio) - Data Points Laboratory Results: Laboratory Results 01/26/18 22:12 01/26/18 22:12 01/26/18 01/26/18 01/26/18 22:12 22:12 22:12 WBC 6.03 10^3/uL 10^3/uL (3.80-9.50) RBC 4.94 10^6/uL 10^6/uL (4.40-6.38) Hgb 15.5 g/dL g/dL (13.7-17.5) Hct 44.7 % % (40.0-51.0) MCV 90.5 fL fL (81.5-99.8) MCH 31.4 pg pg (27.9-34.1) MCHC 34.7 g/dL g/dL (32.4-36.7) RDW 12.6 % % (11.5-15.2) Plt Count 215 10^3/uL 10^3/uL (150-400) MPV 9.6 fL fL (8.7-11.7) Neut % (Auto) 31.9 % L % (39.3-74.2) Lymph % (Auto) 55.2 % H % (15.0-45.0) [place] % (Auto) 8.3 % % (4.5-13.0) Eos % (Auto) 3.5 % % (0.6-7.6) Baso % (Auto) 0.8 % % (0.3-1.7) Nucleat RBC Rel Count 0.0 % % (0.0-0.2) Absolute Neuts (auto) 1.92 10^3/uL 10^3/uL (1.70-6.50) Absolute Lymphs (auto) 3.33 10^3/uL H 10^3/uL (1.00-3.00) Absolute Monos (auto) 0.50 10^3/uL 10^3/uL (0.30-0.80) Absolute Eos (auto) 0.21 10^3/uL 10^3/uL (0.03-0.40) Absolute Basos (auto) 0.05 10^3/uL 10^3/uL (0.02-0.10) Absolute Nucleated RBC 0.00 10^3/uL 10^3/uL (0-0.01) Immature Gran % 0.3 % % (0.0-1.1) Immature Gran # 0.02 10^3/uL 10^3/uL (0.00-0.10) D-Dimer < 0.27 ug/mLFEU ug/mLFEU (0.00-0.50) Sodium 138 mEq/L mEq/L (135-145) Potassium 4.1 mEq/L mEq/L (3.5-5.2) Chloride 105 mEq/L mEq/L (97-110) Carbon Dioxide 23 mEq/l mEq/l (22-31) Anion Gap 10 mEq/L mEq/L (8-16) BUN 19 mg/dL mg/dL (7-23) Creatinine 0.8 mg/dL mg/dL (0.7-1.3) Estimated GFR > 60 Glucose 102 mg/dL H mg/dL (70-100) Calcium 9.7 mg/dL mg/dL (8.5-10.4) Troponin I < 0.012 ng/mL ng/mL (0.000-0.034) 01/26/18 01/26/18 22:00 22:00 WBC REJ RBC Not Reported Hgb Not Reported Hct Not Reported MCV Not Reported MCH Not Reported MCHC Not Reported RDW Not Reported Plt Count Not Reported MPV Not Reported Neut % (Auto) Not Reported Lymph % (Auto) Not Reported [place] % (Auto) Not Reported Eos % (Auto) Not Reported Baso % (Auto) Not Reported Nucleat RBC Rel Count Not Reported Absolute Neuts (auto) Not Reported Absolute Lymphs (auto) Not Reported Absolute Monos (auto) Not Reported Absolute Eos (auto) Not Reported Absolute Basos (auto) Not Reported Absolute Nucleated RBC Not Reported Immature Gran % Not Reported Immature Gran # Not Reported D-Dimer Sodium REJ Potassium Not Reported Chloride Not Reported Carbon Dioxide Not Reported Anion Gap Not Reported BUN Not Reported Creatinine Not Reported Estimated GFR Not Reported Glucose Not Reported Calcium Not Reported Troponin I REJ Departure - Departure Disposition: Home, Routine, Self-Care Clinical Impression: Chest pain Qualifiers: Chest pain type: unspecified Qualified Code(s): R07.9 - Chest pain, unspecified Condition: Good Instructions: Chest Pain (ED) Additional Instructions: 1. Based upon the testing done in the Emergency Department today we see no evidence of a heart attack. 2. We are unable to fully exclude coronary artery disease based upon the testing available in the Emergency Department. 3. For this reason, we would like you to be seen by cardiology for consideration of additional testing within the next 3 days. 4. Please contact the environmental compliance manager you have been referred to schedule this appointment as soon as possible. Their offices are typically open from 8:30am- 5pm M-F. 5. Please return to the Emergency Department immediately for any recurrent chest pain, difficulty breathing or other concerns. Referrals: Sanket Soria MD [Medical Doctor] - As per Instructions (On-call environmental compliance manager.)
[2018-01-26 22:42] LABS: PLATELET COUNT 215 10^3/uL (150-400)
[2018-01-26 23:09] VITALS: BP 107/74; PULSE 61; RESP 16; TEMP 97.5; O2SAT 95
== END 2018-01-26 23:09 | disposition home or self-care (01) ==
DX: R07.9 Chest pain, unspecified (principal)